=== PATIENT | male | born 1970 | race Caucasian/White ===

== ENCOUNTER 2020-02-07 05:18 | Emergency (ER) | payer OTHER, SELFPAY ==
--- NOTE | 2020-02-07 05:15 | DI.CT_ITS ---
EXAM: CT HEAD CERVICAL SPINE WO COMPARISON: No exams were available for comparison FINDINGS: CT examination of the cervical spine was performed without contrast administration. There is no evide nce of acute cervical spine fracture or dislocation. Tracheolaryngeal structures appear intact. No ce rvical mass or adenopathy. There are degenerative changes with multilevel disc space narrowing, a sl ight kyphosis, and endplate hypertrophic changes most marked at C 4 5 and C5-6. Noncontrast cranial CT was performed. Ventricular system is normal in appearance. No evidence of acut e intracranial hemorrhage, mass effect, or midline shift. No calvarial fracture. The orbital and temp oral bone structures appear intact. IMPRESSION: No evidence of acute cervical spine injury. Degenerative changes noted. No evidence of acute intracranial injury. DATA REPOSITORY: All CT scans at this facility are submitted to the National Radiology Data Registry (NRDR) Dose Index Registry (DIR) with the [employer] ([employer]). RADIATION OPTIMIZATION: All CT scans at this facility use at least one of these dose optimization te chniques: automated exposure control; mA and/or kV adjustment per patient size (includes targeted exa ms where dose is matched to clinical indication); or iterative reconstruction.
--- NOTE | 2020-02-07 05:15 | DI.RAD_ITS ---
EXAM: XR ANKLE LT COMPLETE CLINICAL HISTORY: pain s/p fall TECHNIQUE: COMPARISON: XR ANKLE RT COMPLETE from 02/07/2020 FINDINGS: Three views were obtained. The ankle mortise appears well maintained. No fracture seen. IMPRESSION:
--- NOTE | 2020-02-07 05:15 | DI.RAD_ITS ---
EXAM: XR ELBOW RT COMPLETE CLINICAL HISTORY: pain s/p fall TECHNIQUE: COMPARISON: No exams were available for comparison FINDINGS: Three views were obtained. There is no evidence of an elbow joint effusion or hemarthrosis. No frac ture is seen. IMPRESSION:
--- NOTE | 2020-02-07 05:15 | DI.RAD_ITS ---
EXAM: XR ANKLE RT COMPLETE CLINICAL HISTORY: pain s/p fall TECHNIQUE: COMPARISON: XR ANKLE LT COMPLETE from 02/07/2020 FINDINGS: Three views were obtained. Small bone island noted in the distal tibia. The ankle mortise is well m aintained. No fracture seen. IMPRESSION:
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
[2020-02-07 05:21] VITALS: BP 131/89; PULSE 81; RESP 18; TEMP 36.2; O2SAT 98
[2020-02-07] MEDS: oxyCODONE 5 MG TAB PO (05:25)
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
[2020-02-07 06:54] VITALS: BP 129/80; PULSE 76; RESP 18; TEMP 36.2; O2SAT 98
[2020-02-07] MEDS: Bacitracin 30 GM TUBE (06:56)
== END 2020-02-07 06:50 | disposition home or self-care (01) ==
PROVIDERS: Emergency Provider Emergency Medicine
DX: S50.01XA Contusion of right elbow, initial encounter (principal); S93.401A Sprain of unspecified ligament of right ankle, initial encounter; S93.402A Sprain of unspecified ligament of left ankle, initial encounter; S20.419A Abrasion of unspecified back wall of thorax, initial encounter; W19.XXXA Unspecified fall, initial encounter
CPT/HCPCS: 90471; 99285; 70450; 72125; 73080; 73610

== ENCOUNTER 2020-09-05 08:20 | Emergency (ER) | payer MEDICAID, SELFPAY ==
--- NOTE | 2020-09-05 08:15 | RT.EKG_ITS ---
APPROVED REPORT Exam: Resting ECG Patient Location: E HR:85 bpm ECG Measurements Heart Rate 85 AXIS SC 128 P 35 QRSd 86 QRS -74 QT 375 T 10 QTc 446 Conclusion Sinus rhythm...normal P axis, V-rate 60- 99 Left anterior fascicular block...axis(240,-40), init forces inf
[2020-09-05 08:26] VITALS: BP 144/87; PULSE 92; RESP 18; TEMP 37.2; O2SAT 98
[2020-09-05 08:31] VITALS: RESP 18
[2020-09-05 08:53] LABS: Abs Immature Grans 0.02 10^3/uL (0.0-0.06); HGB 14.5 g/dL (13.5-17.5); Lactate 0.9 mmol/L (0.6-1.4); MCH 28.9 pg (27.0-33.0); MCHC 33.7 % (32.0-36.0); MCV 85.8 fL (80-95); Nucleated RBC 0 %; Platelet Count 319 10^3/uL (130-400); RBC 5.01 10^6/uL (4.36-5.78); RDW 12.7 % (11.8-14.1); RDW-SD 39.7 fL
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
[2020-09-05 09:14] LABS: Absolute Neutrophil Count 4.37 10^3/uL (1.2-6.7)
[2020-09-05 09:15] LABS: Absolute Lymphocyte Count 4.78 10^3/uL (1.2-3.4); Absolute Monocyte Count 1.25 10^3/uL (0.1-0.8); Atypical Lymphocytes % 14; Diff Comment Manual Differential; RBC Morphology Normal
[2020-09-05 09:18] LABS: PTT Activated 27.2 sec (21.0-27.5); Prothrombin Time 10.4 sec (9.3-11.0)
[2020-09-05 09:20] LABS: ALT 44 U/L (16-63); AST 25 U/L (15-37); Albumin 3.5 g/dL (3.4-5.0); Alkaline Phosphatase 92 U/L (46-116); Anion Gap 8.6 mmol/L (3-11); BUN 14 mg/dL (7-18); Bilirubin, Total 0.6 mg/dL (0.2-1.0); CO2 27.4 mmol/L (21.0-32.0); CREATININE 0.83 mg/dL (0.70-1.30); Chloride 100 mmol/L (98-107); Glucose 126 mg/dL (74-106); Lipase 94 U/L (73-393); Magnesium 2.1 mg/dL (1.8-2.4); Potassium 4.2 mmol/L (3.5-5.1); Sodium 136 mmol/L (136-145); Total Protein 7.4 g/dL (6.4-8.2)
[2020-09-05 09:21] LABS: Troponin I 0.57 ng/mL (<0.06)
[2020-09-05] MEDS: Normal Saline - Diluent 50 ML VIAL IV (10:20)
[2020-09-05] MEDS: Omnipaque 350 MG/ML 100 ML BTL IJ (10:20)
--- NOTE | 2020-09-05 10:21 | DI.CT_ITS ---
EXAM: CT CHEST PE ABD PELVIS W CLINICAL HISTORY: chest tightness, RUQ abd pain, r/o PE. TECHNIQUE: Imaging Protocol: Axial CT angiography was performed with multi-slice acquisition and mu lti-planar and/or 3D reconstructions. CONTRAST MATERIAL: Intravenous: Omnipaque 350 Contrast volume:100 mL COMPARISON: CT ABD PELVIS WITH CONTRAST from 10/26/2011 FINDINGS: CHEST: Pulmonary Arteries: No evidence of filling defect to suggest pulmonary emboli. Tracheobronchial tree: Patent where visualized. Mediastinum and Maria L: No dominant adenopathy or fluid collection. Small hiatal hernia. Pulmonary parenchyma: No consolidation or dominant measurable mass. No architectural distortion. Pleura: No effusion or pneumothorax. Heart: The heart is not dilated. No coronary artery calcifications are seen. No pericardial effusion. Aorta: Thoracic aorta non-dilated. No dissection. Bones: Degenerative changes. Soft tissues: Unremarkable. ABDOMEN: Liver: There is diffuse decreased attenuation of the liver consistent with fatty infiltration. There is again seen a 2 cm mass in the lateral segment of the left lobe of the liver. It shows peripheral enhancement suggestive of a hepatic hemangioma. This is unchanged compared to the prior examination from 2010. Portal, Superior Mesenteric, and Splenic Veins: Unremarkable. Gallbladder and Biliary Tract: Small densities are seen within the gallbladder. This likely reflects cholelithiasis. No biliary ductal dilatation is present. Pancreas: Normal density, no abnormal calcifications or inflammatory process. Spleen: Normal. Adrenals: No masses seen. Kidneys: Normal size, contour and axis. No radiodense stones or obstructive uropathy. No masses seen. Abdominal Aorta: Abdominal portion non-dilated. Bowel: No evidence of obstruction. No evidence of appendicitis. There is wall thickening seen in th e distal is stomach and proximal duodenum. Inflammatory changes are seen in the surrounding soft tis sues. Peritoneal Cavity: No ascites, collection or mesenteric inflammatory response. Lymph Nodes: Within normal limits. Bones: Degenerative changes in the spine. Unilateral left spondylolysis of L5. No spondylolisthesis . Soft Tissues: Small fat containing umbilical hernia. PELVIS: Bladder: Symmetric distention, no gross wall thickening. Reproductive Organs: Unremarkable as visualized. Lymph Nodes: Within normal limits. Bones: Please see above. IMPRESSION: 1. Wall thickening and inflammatory changes associated with distal stomach and proximal duodenum. An infectious or inflammatory gastritis/duodenitis should be considered. Ulcer disease should also be considered. No pneumoperitoneum. 2. Findings suspicious for cholelithiasis. Gallbladder ultrasound may be obtained for further evalua tion. No biliary ductal dilatation. 3. Fatty infiltration of the liver. Stable hepatic mass most consistent with a hepatic hemangioma. 4. No evidence of a pulmonary embolism, thoracic aortic dissection or aneurysm. 5. Findings were discussed with the emergency department on the date of the examination. RADIATION DOSE DELIVERED: 1,196.05mGy.cm Total DLP 1,196.05mGy.cm Total DLP DATA REPOSITORY: All CT scans at this facility are submitted to the National Radiology Data Registry (NRDR) Dose Index Registry (DIR) with the [employer] ([employer]). RADIATION OPTIMIZATION: All CT scans at this facility use at least one of these dose optimization te chniques: automated exposure control; mA and/or kV adjustment per patient size (includes targeted exa ms where dose is matched to clinical indication); or iterative reconstruction.
[2020-09-05] MEDS: Clopidogrel 300 MG TAB PO (10:42)
[2020-09-05] MEDS: Aspirin 325 MG TAB PO (10:42)
[2020-09-05] MEDS: Normal Saline 500 ML IV (10:55)
--- NOTE | 2020-09-05 11:15 | RT.EKG_ITS ---
APPROVED REPORT Exam: Resting ECG Patient Location: E HR:89 bpm ECG Measurements Heart Rate 89 AXIS MT 124 P 23 QRSd 88 QRS -61 QT 373 T 0 QTc 455 Conclusion Sinus rhythm...normal P axis, V-rate 60- 99 Left anterior fascicular block...axis(240,-40), init forces inf Low voltage, extremity leads...all extremity leads <0.5mV. LAFB, Less than 1mm ST elevation in aVL, seen in previous. No significant change from previous EKG.
[2020-09-05 12:20] LABS: Troponin I 0.62 ng/mL (<0.06)
[2020-09-05 13:15] LABS: C-Reactive Protein 4.91 mg/dL (0.0-0.3)
[2020-09-05 13:43] LABS: ESR 24 mm/hr (1-20)
[2020-09-07 11:18] LABS: SARS-CoV-2 RNA Not Detected (NotDetected); SARS-CoV-2 RNA Source Nasal/Nares
[2020-09-10 15:33] LABS: Babesia divergens/MO-1 Negative (Negative); Babesia duncani Negative (Negative); Babesia microti Negative (Negative); Ehrlichia chaffeensis Negative (Negative); Ehrlichia ewingii/canis Negative (Negative); Ehrlichia muris eauclairensis Negative (Negative); Lyme Ab w Rflx to Lyme Confirm Negative (Negative)
[2020-09-10 15:34] LABS: B. miyamotoi PCR Negative (Negative)
[2020-09-10 15:35] LABS: Anaplasma phagocytophilum Positive (Negative)
--- NOTE | 2020-09-11 11:11 | NUR.NOTE ---
Referral to Care Management to establish pcp Nursing Note:
--- NOTE | 2020-09-11 16:50 | W.ED.FU ---
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 Patient called on the number listed on chart which is his father's number. Patient's cell number [phone]. Patient states he feels much better and denies any fever, flulike symptoms or chest pain. Patient recently discharged from [facility] after transferred from here for NSTEMI and myocarditis. 1800 -- Case discussed with [facility] infectious disease who reviewed patient's chart and states that myocarditis is usually not seen with anaplasmosis but rather Lyme disease. Recommend treatment with doxycycline 100 mg twice daily for 10 days. Recommends follow-up with his primary care doctor for repeat Lyme titer within the next 1-2 weeks and if Lyme titer positive, would recommend additional treatment with doxycycline for approximately 1 month. Message left on patient's phone to call his primary care doctor tomorrow for repeat Lyme titer in the next 1 to 2 weeks.
--- NOTE | 2020-09-12 11:45 | PDOC.ERCMPRO ---
- If Service Date Differs Date of service: 09/12/20 Time of Service: 11:45 Care Management Progress Note Noe is seen in the ED on 09/05/20 for myocarditis. At the request of Dr. Petersen, ED provider, KYLIE coordinates a referral to Dr. Jaden Chong, on-call provider, of [facility] [[email or web address]], to assist Noe in obtaining a follow up appointment and in establishing care with a PCP. Noe is also currently without health insurance and a referral is made to [facility] to enlist their assistance in exploring health insurance options.
== END 2020-09-05 12:02 | disposition short-term general hospital (02) ==
PROVIDERS: Emergency Provider Physician Assistant
DX: I21.4 Non-ST elevation (NSTEMI) myocardial infarction (principal); I40.9 Acute myocarditis, unspecified; M79.10 Myalgia, unspecified site; R53.83 Other fatigue
CPT/HCPCS: 36415; 71275; 74177; 80053; 83690; 85652; 87798; 93005; 96361; 96365; 99291; U0003; 83605; 83735; 84484; 85025; 85610; 85730; 86140; 86618; 93010; J3490

== ENCOUNTER 2021-10-11 17:18 | Emergency (ER) | payer MEDICAID, SELFPAY ==
[2021-10-11 17:21] VITALS: BP 148/103; PULSE 86; RESP 16; TEMP 36.6; O2SAT 97
--- NOTE | 2021-10-11 17:37 | ED.GENADUL_ITS ---
Discharge Plan Disposition Patient Disposition: HOME Condition: Stable Discharge Details Clinical Impression: Pain, dental Primary Care Provider: Unknown,Unknown ED Provider: Heather Marques Home Meds and New Rx's Prescriptions: No Action No Known Home Meds RF: 0 Discharge Instructions Instructions: Hydrocodone/Acetaminophen (By mouth), Toothache (ED) Additional Instructions: Please keep your upcoming dentist appointment as previously scheduled. Apply the Hurricaine gel up to 3 times daily as needed for pain. Take the hydrocodone Tylenol 1 or 2 tablets every 4-6 hours as needed for pain. Do not take any extra Tylenol while taking this medication. Do not drive or operate heavy machinery. Take with food to avoid nausea vomiting. Discharge Data Discharge Date/Time-TO BE ENTERED AT DEPARTURE: 10/11/21 17:57 Medical Decision Making 51-year-old male presents to the ER with chief complaint of right upper toothache. He reports that a filling fell out approximately 3 weeks ago but pain has worsened over the last couple of days. He has been trying sjfz-fkl-rqcquqk clove oil and taking Tylenol or ibuprofen with little to no relief. He has a dentist appointment on Tuesday at 4 PM. He has been taking penicillin for the last couple of days. He does have a broken tooth noted on exam. No areas of fluctuance or drainage or signs of abscess. He is speaking in full sentences no other associated symptoms at this time. Patient given topical benzocaine gel and hydrocodone Tylenol here in the department. Patient encouraged keep dental appointment given dental resources. Patient was given 4 tablets of hydrocodone Tylenol. This text was generated using [employer] dictation system, please disregard any oddities of phrase or misspellings. HPI General Mode of arrival: ambulatory . Date/Time Provider Initiated Documentation: 10/11/21 17:19 . Limitations to Documentation: no limitations . Information obtained by: patient and RN notes reviewed . HPI Narrative: 51-year-old male presents to the ER with chief complaint of right upper toothache. He reports that a filling fell out approximately 3 weeks ago but pain has worsened over the last couple of days. He has been trying zgqy-ehw-cjakhmq clove oil and taking Tylenol or ibuprofen with little to no relief. He has a dentist appointment on Tuesday at 4 PM. He has been taking penicillin for the last couple of days. He does have a broken tooth noted on exam. No areas of fluctuance or drainage or signs of abscess. He is speaking in full sentences no other associated symptoms at this time. Related Data Home Medications Medication Instructions Recorded Confirmed Unknown [No Known Home Meds] 02/07/20 10/11/21 Allergies Allergy/AdvReac Type Severity Reaction Status Date / Time No Known Drug Allergies Allergy Unverified 10/11/21 17:28 General Stated Complaint: DentalOral JONATHAN: 4 Review of Systems ENT Ears, Nose, Mouth, and Throat: Denies change in voice, Reports dental pain and Denies dysphagia Gastrointestinal Gastrointestinal: Denies dysphagia PFS All Active Problems (Updated 10/11/21 @ 17:41 by Heather Marques) Pain, dental (Acute) Medical History No significant past medical history Surgical History History of appendectomy History of hernia repair Social History Smoking/Tobacco Use Status: Never Smoking risk assessment performed?: Yes Alcohol Intake: current Alcohol Intake frequency: a few times a month Drug use: Occasionally Substance use type: does not use and marijuana Do you feel safe at home: Yes Do you feel safe in your relationship?: No Exam HENMT Teeth and gingiva: caries and poor dentition Teeth image: 1. Broken tooth Throat: posterior oropharynx normal, tonsils normal and uvula midline Course Vital Signs Vital signs: Vital Signs Temperature 36.6 C 10/11/21 17:21 Pulse 86 10/11/21 17:21 Respiratory Rate 16 10/11/21 17:21 Blood Pressure 148/103 H 10/11/21 17:21 Pulse Oximetry 97 10/11/21 17:21 Temperature 36.6 C 10/11/21 17:21 Temperature Source Skin 10/11/21 17:21 Pulse 86 10/11/21 17:21 Respiratory Rate 16 10/11/21 17:21 Respiratory Effort 10/11/21 17:29 Blood Pressure 148/103 H 10/11/21 17:21 Blood Pressure Position Sitting 10/11/21 17:21 Pulse Oximetry 97 10/11/21 17:21 Oxygen Delivery Method Room Air 10/11/21 17:21 Oxygen Flow Rate 0 10/11/21 17:21 Pain Level 10 10/11/21 17:30 PAWSS Have you Been Recently Intoxicated or Drunk Within the Last 30 days?: No Have you Ever Experienced Previous Episodes of Alcohol Withdrawal?: No Have you ever Experienced Withdrawal Seizures?: No Have you ever Experienced Delirium Tremens(DT)s?: No Have you ever undergone [facility]: No Have you ever Experienced Blackouts?: No Have you ever Combined Alcohol with other Downers within the last 90 days?: No Have you ever Combined Alcohol with any other Substance of Abuse during the last 90 days?: No Positive Blood Alcohol level on Presentation? [PCS.BAL]: No Evidence of Increased Autonomic Activity (i.e. HR>120, tremor, sweating, ag itation, nausea)?: No Result: 0
[2021-10-11] MEDS: HYDROcodone 5/Acetaminophen 325 TAB PO (17:49)
[2021-10-11] MEDS: Benzocaine 20% Gel 30 GM JAR MM (17:50)
== END 2021-10-11 17:57 | disposition home or self-care (01) ==
PROVIDERS: Emergency Provider Registered Nurse Emergency
DX: K08.89 Other specified disorders of teeth and supporting structures (principal); K03.81 Cracked tooth
CPT/HCPCS: 99283

== ENCOUNTER 2024-11-26 12:30 | Emergency (ER) | payer MEDICAID, SELFPAY ==
--- NOTE | 2024-11-26 12:30 | DI.RAD_ITS ---
Exam(s) XR SHOULDER LT COMPLETE 2+V EXAM: XR SHOULDER LT COMPLETE 2+V CLINICAL HISTORY: Left shoulder pain. TECHNIQUE: 2D digital imaging was performed of the left shoulder. Five images were obtained. AP, G rashey, Y-view and axillary views were obtained. COMPARISON: No exams were available for comparison FINDINGS: BONES: No acute fracture is present. No bony destructive lesion is seen. JOINTS: No dislocation present. The acromioclavicular and glenohumeral joints are well maintained. SOFT TISSUE: Normal. IMPRESSION: No acute abnormality. DATA REPOSITORY: RADIATION DOSE DELIVERED:
[2024-11-26 12:33] VITALS: BP 148/78; PULSE 84; RESP 16; TEMP 36.6; O2SAT 98
--- NOTE | 2024-11-26 13:05 | ED.GENADUL_ITS ---
Discharge Plan Disposition Patient Disposition: Home Discharge Details Clinical Impression: Acute pain of left shoulder Primary Care Provider: Unknown,Unknown ED Provider: Bipin Shankar Home Meds and New Rx's Prescriptions: No Action No Known Home Meds Discharge Instructions Additional Instructions: You are seen in the emergency department for your left shoulder pain. Your x- ray showed no sign of any dislocations or fractures. As we discussed you may have a musculoskeletal strain for which she should rest and complete pendulum activities as you were shown. If you develop any weakness in your left hand any fevers or begin vomiting please return to the emergency department. Otherwise please follow-up with your primary care provider to touch base about the poss ibility of a referral for physical therapy and if your symptoms do not improve in the next several weeks the possibility of an MRI. For your pain please take medications as follows: 1. Take acetaminophen (Tylenol), 1,000 mg (two 500 mg tabs) every 6 hours [2. Take ibuprofen (Advil), 400 mg every 6 hours.] HPI General Date/Time Provider Initiated Documentation: 11/26/24 12:32 . HPI Narrative: MDM This is an overall very well-appearing normothermic and nontachycardic [id number]-twwkwckd 54-year-old male with left shoulder pain. The x-ray results do not indicate any fractures or dislocations. The symptoms suggest a potential issue with a tendon or ligament, possibly a strain or tear. Adhesive capsulitis is also a consideration. He has been advised to engage in pendulum exercises to maintain range of motion and avoid heavy lifting or strenuous activities on the affected side. He has declined the offer for acetaminophen and ibuprofen. Given normal x-ray will recommend physical therapy which can be arranged by his primary care provider. If there is no improvement in symptoms within a few weeks, an MRI may be considered to investigate further. 2. Elbow pain. The patient reported tenderness in the knuckle part of the elbow after hitting it hard about a week ago. Although the pain is not severe, an elbow x-ray has been offered to rule out any fractures. Patient declined x-ray. Given good range of motion and left elbow my suspicion for any acute osseous abnormalities is low. I considered upper extremity DVT however the patient denies IV drug use and has no recent history of any PICC lines. I considered septic joint however the patient has had no fevers and has no significant swelling or erythema to left shoulder. I considered referred pain however the patient was not nauseous or vomiting so my suspicion is low for appendicitis diverticulitis and cholecysti tis. No chest pain to suggest ACS. Patient is not short of breath and I suspicion is low for PE. I considered CVA however patient has intact sensation and motor function in his left hand so I did not feel that he would be a tPA candidate nor would he require an MRI. No chest pain to suggest aortic dissection so I did not feel that the patient required a CT angiogram of his chest. No rash to shoulder to suggest zoster. HPI The patient presents for evaluation of left shoulder pain. He is left-handed and reports experiencing left shoulder pain approximately 2 weeks ago, which he attributes to an incident involving throwing a ball for his dog. He describes the sensation as unusual, rob to a dislocation, but maintains functionality in his left hand. The pain intensifies during sleep and when attempting to reach overhead, such as during shampooing. He also reports numbness in his thumb, index, and middle fingers, a symptom that predates the shoulder pain by a year but has since worsened. He recalls a transient episode of redness in his armpit, which has since resolved. He does not report any fevers, swelling, or intravenous drug use. His alcohol consumption is limited to one beer daily. He does not report any history of gout, thromboembolic events, recent hospitalizations, or large IV placements on the affected side. He also reports an isolated incident of mid-back pain, which he believes was referred from the shoulder, and occasional radiation of pain to the thumb. Additionally, he mentions a fall from a chair a week ago, during which he sustained an elbow injury. He speculates that this incident may have contributed to the shoulder pain. He reports tenderness in the knuckle region of the elbow but does not report any significant discomfort at present. Exam General: Well-appearing in no acute distress speaking in complete sentences. Head: Normocephalic, atraumatic. Eye: Extraocular eye movements intact. No conjunctival injection. No scleral icterus. Ear, nose, mouth, throat: Grossly normal inspection. Normal voice, handling secretions normally. Neck: Trachea midline. Cardiovascular: Well-perfused distal extremities. Respiratory: Nonlabored respiration. Gastrointestinal: Nondistended abdomen. Musculoskeletal: Left upper extremity: No obvious signs of trauma. Nontender left clavicle. Shoulder range of motion: Patient is able to flex his shoulder to approximately 100 degrees. He is able to extend his shoulder approximately 10 degrees. He is able to abduct his shoulder approximately 100 degrees. He can fully supinate and pronate his left upper extremity. He has full range of motion in his left elbow. He has been on tender shoulder humerus elbow forearm. He has 2+ left radial pulse. Sensation motor function intact in the left hand across the radial, median, ulnar nerve distributions. Skin: Normal for age and race, grossly normal temperature and turgor. No acute rash. Neurologic: Alert and appropriate, no apparent acute deficits. Psychiatric: Mood and manner are appropriate. Grooming and personal hygiene are appropriate. Related Data Home Medications ?Medication ?Instructions ?Recorded ?Confirmed Unknown [No Known Home Meds] 02/07/20 11/26/24 Allergies Allergy/AdvReac Type Severity Reaction Status Date / Time No Known Drug Allergies Allergy Unknown Unverified 11/26/24 12:36 General Stated Complaint: Orthopedic JONATHAN: 4 Course Vital Signs Vital signs: Vital Signs Temperature 36.6 C 11/26/24 12:33 Pulse 84 11/26/24 12:33 Respiratory Rate 16 11/26/24 12:33 Blood Pressure 148/78 H 11/26/24 12:33 Pulse Oximetry 98 11/26/24 12:33 Temperature 36.6 C 11/26/24 12:33 Pulse 84 11/26/24 12:33 Respiratory Rate 16 11/26/24 12:33 Blood Pressure 148/78 H 11/26/24 12:33 Pulse Oximetry 98 11/26/24 12:33 Pain Level 3 11/26/24 12:33 Comment when pain is at its worst it is a 10, at rest it is 3 11/26/24 12:33 Medical Decision Making Quality:SDOH Health Related Social Needs: No Data to Display PFSH All Active Problems (Updated 11/26/24 @ 13:07 by Bipin Shankar MD) Acute pain of left shoulder (Acute) Pain, dental (Acute) Medical History No significant past medical history Surgical History History of appendectomy History of hernia repair Social History Smoking/Tobacco Use Status: Never Smoking risk assessment performed?: Yes Alcohol Intake: current Alcohol Intake frequency: a few times a month Drug use: Occasionally Substance use type: does not use and marijuana Do you feel safe at home: Yes Do you feel safe in your relationship?: No
== END 2024-11-26 13:14 | disposition home or self-care (01) ==
LOC: ER 13:20
PROVIDERS: Emergency Provider Emergency Medicine
DX: M25.512 Pain in left shoulder (principal); M25.522 Pain in left elbow
CPT/HCPCS: 99283; 73030